=== PATIENT | female | born 1935 | race Caucasian/White ===

== ENCOUNTER 2019-04-28 20:12 | Inpatient (IN) | payer OTHER ==
[~2019-04-28] VITALS: Ht 149.9 cm; Wt 58.2 kg
[~2019-04-28 20:12] MED LIST: ACETAMINOPHEN325 M1; ALEVE220 MG PO; APAP500; CALCIUM 500 +1 EAC4 PO; CELEXA40 MG PO; FOSAMAX 70 MG T70 M1 PO; GLUCOSAMINE HC500 MG PO; HYDROCODON-ACE1 EAC7 PO; IBUPROFEN; LISINOPRIL20 MG PO; LOVASTAT40; LOVASTAT40 PO; SYNTHROID75 MCG PO
[2019-04-28 20:13] VITALS: BP 154/135
[2019-04-28] MEDS ORDERED: ALBUTEROL2.5 MG/31 INH (20:20)
[2019-04-28 20:46] LABS: HEMOGLOBIN 9.5 gm/dL (12.0-15.0); MCH 30.1 pg (26.0-34.0); MCHC 32.8 g/dL (28.0-37.0); MCV 91.9 fL (80.0-100.0); MPV 7.8 fl. (7.2-11.1); NUCLEATED RBCS 0 /100WBC; PLATELET COUNT* 236 thou/uL (150-400); RBC 3.15 mil/uL (4.20-5.00); RDW-CV 15.3 % (10.5-14.5)
[2019-04-28 20:55] LABS: ANION GAP 16 mmol/L (7-16); BUN 22 mg/dL (7-18); CALCIUM 7.8 mg/dL (8.5-10.1); CHLORIDE 103 mmol/L (98-107); CO2 21 mmol/L (21-32); CREATININE 1.8 mg/dL (0.6-1.3); GLUCOSE 116 mg/dL (70-99); SODIUM 140 mmol/L (136-145)
[2019-04-28 20:56] LABS: POTASSIUM 2.9 mmol/L (3.5-5.1)
[2019-04-28 21:05] LABS: ALBUMIN 2.5 g/dL (3.4-5.0); ALKALINE PHOSPHATASE 100 U/L (46-116); LIPASE 246 U/L (73-393); MAGNESIUM 1.5 mg/dL (1.8-2.4); NT-PRO BRAIN NAT PEPTIDE 2013 pg/mL (<300); SGOT 31 U/L (15-37); SGPT 29 U/L (30-65); TOTAL BILIRUBIN 0.4 mg/dL (<0.1-1.0); TOTAL PROTEIN 6.3 g/dL (6.4-8.2); TROPONIN-I LEVEL <0.06 ng/mL (<0.06)
[2019-04-28 21:12] LABS: PROTIME 10.4 Seconds (9.20-11.50)
[2019-04-28 21:30] LABS: ABSOLUTE EOSINOPHILS 0.1 thou/uL (0.0-0.7); ABSOLUTE LYMPHOCYTES 0.8 thou/uL (0.8-5.3); ABSOLUTE MONOCYTES 0.3 thou/uL (0.0-1.2); ABSOLUTE NEUTROPHILS 11.8 thou/uL (1.6-8.1); ANISOCYTOSIS Occasional; PLATELET ESTIMATE ADEQUATE; TOXIC GRANULATION 1+
[2019-04-28 22:29] LABS: BE -6.6 mmol/L (-2 to +3); PCO2 29.4 mmHg (35.0-45.0); pH 7.387 (7.340-7.450)
[2019-04-28 23:57] VITALS: BP 133/69
[2019-04-29] VITALS (16 sets, daily range): BP systolic 112–149; BP diastolic 52–102
--- NOTE | 2019-04-29 04:39 | NUR ---
RECIEVED PT FROM ER AT 0015H. PT WAS ALERT AND ORIENTED. HOOKED TO BIPAP MACHINE AND TOLERATING WELL.NO DISTERESS NOTED.VITALLY STABLE.CONTINUE MONITORING AND TOWARDS GOAL.
--- NOTE | 2019-04-29 06:19 | NUR ---
PT COULDN'T URINATE VIA BED PACHECO.BLADDER SCAN DONE WITH 720ML.LOUIS INSERTED ASEPTICALLY WITH PERMISSION OF PT.
[2019-04-29 06:30] LABS: URINE BILIRUBIN NEGATIVE (Negative); URINE BLOOD 1+ (Negative); URINE CLARITY CLEAR; URINE COLOR YELLOW; URINE GLUCOSE-RANDOM NEGATIVE (Negative); URINE KETONES TRACE (Negative); URINE LEUKOCYTES-REFLEX NEGATIVE (Negative); URINE NITRITE-REFLEX NEGATIVE (Negative); URINE PROTEIN 2+ (Negative); URINE UROBILINOGEN 0.2 E.U./dl (0.2-1.0)
[2019-04-29 06:44] LABS: SQUAMOUS 0-3 Few /LPF (0-3)
[2019-04-29 06:45] LABS: BACTERIA-REFLEX None Seen /HPF (None Seen); URINE RBC 0-2 Rare /HPF (0-2); URINE WBC-REFLEX None Seen /HPF (0-5)
[2019-04-29 06:46] LABS: HYALINE CASTS 0-3 Few /LPF (None Seen); MUCUS 0-3 Light strn/LPF (None Seen)
[2019-04-29 06:47] LABS: AMORPHOUS URATES Moderate /LPF (None Seen)
[2019-04-29 07:55] LABS: HEMATOCRIT 26.9 % (37.0-47.0); HEMOGLOBIN 8.8 gm/dL (12.0-15.0); MCH 30.4 pg (26.0-34.0); MCHC 32.8 g/dL (28.0-37.0); MCV 92.6 fL (80.0-100.0); RBC 2.9 mil/uL (4.20-5.00); RDW-CV 14.9 % (10.5-14.5); WBC 11.4 thou/uL (4.0-11.0)
[2019-04-29 08:01] LABS: CALCIUM 7.5 mg/dL (8.5-10.1); CREATININE 1.7 mg/dL (0.6-1.3); MAGNESIUM 2.4 mg/dL (1.8-2.4); PHOSPHORUS* 2.7 mg/dL (2.5-4.9)
[2019-04-29 08:02] LABS: POTASSIUM 4.2 mmol/L (3.5-5.1)
--- NOTE | 2019-04-29 08:46 | NUR ---
2982 ASSUMED CARE OF PATIENT. PLEASE SEE DOCUMENTED ASSESSMENT. PT IS ON BIPAP. DR STARK AND DR OSBORNE TO SEE PATIENT. WILL TRY OFF OF BIPAP
--- NOTE | 2019-04-29 08:47 | NUR ---
0840 RETYRNED TO BIPAP FRIM 5LPM NASAL CANJNULA DUE TO OXYGEN SATS DOWN TO 79%.
--- NOTE | 2019-04-29 10:47 | EKG ---
[place] [address] ELECTROCARDIOGRAM REPORT Name: DAVID PARKER Room: [address] ADM IN M.R.#: [id number] Admission: 04/28/19 Attend Phys: Jw Chavis MD Discharge: Date of : 37 Report #: [id number] THIS REPORT FOR: //name// [facility] ED Test Date: 2019-04-28 Test Time: 20:26:52 Pat Name: DAVID DUPREERP Department: Room: [facility] Gender: F Composition Floor Layer: ROBLES : 1935 Requested By: Ammy Rodriguez Order Number: [id number] MD: Fermin Amato Measurements Intervals [place] Rate: 97 P: 41 SC: 123 QRS: 66 QRSD: 86 T: -5 QT: 393 QTc: 500 Interpretive Statements Sinus tachycardia Ventricular bigeminy Nonspecific repol abnormality, diffuse leads Borderline prolonged QT interval Compared to ECG 12/01/2009 17:39:34 Ventricular premature complex(es) now present Sinus rhythm no longer present Electronically Signed On 04-29-2019 10:47:41 CDT by Fermin Amato [email or web address] <ELECTRONICALLY SIGNED> By: Fermin Amato MD, [facility] 04/29/19 1047 25 25 Fermin Amato MD, [facility] /EPI
--- NOTE | 2019-04-29 13:14 | NUR ---
PATIENT UNABLE TO TOLERATE BEING OFF OF BIPAP FOR MEALS. ABLE TO DO ORAL CARE AND PATIENT CAN TALK WITH BIPAP ON BUT DESATS QUICKLY TO 85-87% ON CANNULA
--- NOTE | 2019-04-29 13:39 | NUR ---
5673 patient stated to this nurse and to her grandson rosalia that she does not want to be intubated or put on ventilator.
--- NOTE | 2019-04-29 16:09 | NUR ---
1530 ATTEMPTED HIGH FLOW CANNULA BUT PT UNABLE TO TOLERATE.PT BECAME VERY SOA WWITH SAT DROPPING INTO LOW 80'S AND REQUESTING BIPAP. ONCOLOGY HERE ALSO AND UPDATED PATIENT ON HER PATHOLOGY REPORT FROM [place]. MAHIN SKY IS WITH PATIENT. DR STARK NOTIFIED OF PATIENT STATUS AND ORDERS RECEIVED
--- NOTE | 2019-04-29 17:12 | NUR ---
PATIENT NOT PROGRESSING TOWARDS GOALS. UNABLE TO TOLERATE BEING OFF OF BIPAP TODAY. LUNGS TIGHT AND WHEEZY. FIO2 CURRENTLY AT 70%. HAS NOT BEEN OFF OF BIPAP LONG ENOUGH TO EAT. PATIENT BECOMES ANXIOUS WHEN OFF OF BIPAP. DOING BETTER WITH PRN ATIVAN. ALSO GIVEN DIURETIC. SEEN BY CONSULTS AND AWAITING RECORDS FROM RECENT STAY AT [facility]. PT INSISTS THAT SHE WILL NOT BE INTUBATED AND THAT ORDER IS IN PLACE. FAMILY HAS VISITED.
[2019-04-30] VITALS (23 sets, daily range): BP systolic 120–171; BP diastolic 26–102
[2019-04-30 03:53] LABS: HEMATOCRIT 24.3 % (37.0-47.0); HEMOGLOBIN 7.8 gm/dL (12.0-15.0); MCHC 32.3 g/dL (28.0-37.0); MPV 7.9 fl. (7.2-11.1); RBC 2.61 mil/uL (4.20-5.00); RDW-CV 15.4 % (10.5-14.5); WBC 14.3 thou/uL (4.0-11.0)
[2019-04-30 04:21] LABS: CALCIUM 7.5 mg/dL (8.5-10.1); CREATININE 2.2 mg/dL (0.6-1.3); MAGNESIUM 2.2 mg/dL (1.8-2.4); POTASSIUM 4.4 mmol/L (3.5-5.1)
--- NOTE | 2019-04-30 05:39 | NUR ---
ASSUMED CARE AT 1910H, ON BIPAP AT 70% AND CAN NOT TOLERATE WITHOUT IT.MASK CHANGED TO SMALLER ONE AND PT WAS MORE COMFORTABLE.PT SLEPT WELL TONIGHT.NOTED PT STILL HAVE A HEMATURIA AND FLUSHING DONE ONCE IN AWHILE.CONTINUE MONITORING AND TOWARDS GOAL.
--- NOTE | 2019-04-30 07:48 | CON ---
[address] [address] CONSULTATION Name: DAVID PARKER Room: [address] ADM IN M.R.#: [id number] Admission: 04/28/19 Attend Phys: Jw Chavis MD Discharge: Date of : 36 Report #: [id number] THIS REPORT FOR: //name// CC: Amber Singh MD DATE OF SERVICE: 04/29/2019 PULMOANRY CONSULTATION ATTENDING PHYSICIAN: Dr. Jw Chavis. LOCATION: At [facility], she is located in the ICU bed 5. INDICATION FOR CONSULTATION: Acute hypoxic respiratory failure, recurrent pleural effusion, and dyspnea. CLINICAL SUMMARY: The patient is an 83-year-old female, prior smoker with multiple medical problems. She was admitted through the Emergency Room for the past 2-3 days with increasing shortness of breath. She is on oxygen 4-5 liters at home. She was desatting at home and having more shortness of breath and then when she was seen in the Emergency Room, she was tried on BiPAP, seemed to have improved a little bit and was better this morning. She was started on IV steroids and breathing treatments. She does have a history of severe COPD and I see her intermittently in the office. Recently 2 weeks ago, she was admitted to the [facility]. I am awaiting those records, but in brief, she had a malignant pleural effusion on the left that was exudative, not sure whether it was from breast or non-Hodgkin's lymphoma, with prior smoking history could also be lung cancer and we are awaiting those records at this time. I think our group did see her. I am not sure if I saw her at that time or not. PAST MEDICAL HISTORY: She has had a history of non-Hodgkin's lymphoma in remission. She had a previous left upper lobe infiltrate and scar tissue from prior breast cancer with malignancy and also non-Hodgkin's lymphoma noted, also has had bladder cancer. I am not sure what stage that is in, severe COPD, and pulmonary fibrosis with interstitial lung disease. She has been oxygen dependent at home at 3-4 liters. She has not been steroid dependent recently. As my recall, she has quite severe obstructive airways disease with an FEV1 of about 0.7 to 0.8 liters with an FVC of 2.2 liters. She has not been on CPAP or BiPAP at home. Other past medical history, she has had hypertension, hyperlipidemia, COPD oxygen dependent, and [place] [address] CONSULTATION Name: DAVID PARKER Room: [address] IN M.R.#: [id number] Admission: 04/28/19 Attend Phys: Jw Chavis MD Discharge: Date of : 36 Report #: [id number] PAST SURGICAL HISTORY: Includes, in 1970s a left-sided breast carcinoma with mastectomy without chemotherapy. She has had non-Hodgkin's lymphoma with chemo and radiation therapy. She has had bilateral oophorectomy, etiology unknown. In 2012, she had a bladder carcinoma appeared to be localized and also has had a detached retina and a thyroidectomy. ALLERGIES: She has no known medical allergies. CURRENT MEDICATIONS: Include IV Solu-Medrol 40 mg IV q.8 hours. She is on Levaquin IV and she had previously received a dose of vancomycin and Zosyn. Also, is on Lovenox 40 mg daily and atorvastatin 40 mg daily. Synthroid dose is 0.075 mg daily, guaifenesin 1200 mg b.i.d., melatonin 10 mg at bedtime, and on DuoNeb q.4 hours. Currently, oxygen is at 5 liters, was on BiPAP briefly last night, but is now off. FAMILY HISTORY: Negative for premature cardiopulmonary disease. SOCIAL HISTORY: I believe she lives on her own at home. She is on oxygen 3-5 liters at home and breathing treatments. Prior [id number] history of smoking, states she quit 3-4 years ago. Denies any alcohol or illicit drug use. REVIEW OF SYSTEMS: A 14 review of systems reviewed and negative except for pertinent positives noted in the HPI. PHYSICAL EXAMINATION: GENERAL: An ill-appearing 83-year-old female who remembers me as I walked in the room. I have not seen her in the office in the last 3-4 months. VITAL SIGNS: Currently, her blood pressure is 148/70, heart rate is 90, respirations were 20-24, slightly labored. She is afebrile. She is 5 feet tall and weight 58 kilograms or 130 pounds, BMI is 25. HEENT: Pupils are midpoint and reactive. Mucous membranes are moist. NECK: No increase in jugular venous pressure. CHEST: She has marked scarring of her left chest wall from previous old left mastectomy. No evidence of chest wall recurrence. Right chest relatively clear. Breath sounds show bilateral rhonchi, expiratory wheeze, and bilateral crackles bilaterally. She is dull on the left and less dull on the right. CARDIOVASCULAR: Regular rate and rhythm without murmur, gallop, or rub. Heart rate is in the 90s. ABDOMEN: Soft, no masses or megaly. EXTREMITIES: No calf tenderness. No cyanosis, clubbing, or edema. NEUROLOGIC: Nonfocal and intact. She moves all fours to commands. She is alert and oriented x 3. LABORATORY DATA: Today from 04/29/2019 show hemoglobin 8.8, white count 11,400, normal differential, platelets are 219,000. Sodium is 141, potassium is 4.2, carbon dioxide is 20, BUN is 19, creatinine is 1.7. Previous creatinine was 1.8 [place] [address] CONSULTATION Name: DAVID PARKER Room: [address] IN [facility]#: [id number] Admission: 04/28/19 Attend Phys: Jw Chavis MD Discharge: Date of : 36 Report #: [id number] and glucose is 148, calcium is 7.5, phosphorus is 2.7. LFTs within normal limits. NT-proBNP slightly elevated 2012. ABGs from late last night on 5 liters showed a pO2 of 59, pH 7.39, pCO2 is 29, bicarbonate 17, sats 88%. Carboxyhemoglobin only is 0.3. Chest x-ray and CT of the chest shows elevated left hemidiaphragm that obscures the left base. She does have some small to moderate left upper effusion, which appears to track posteriorly and laterally does not appear to be loculated at least at this time. She has marked architectural disease of the lung bneder with upper lobe emphysema and lower lobe fibrosis and interstitial lung disease. There are some periaortic and mediastinal lymph nodes that are noted at 1.5-2 cm that may represent a malignant process. CT of the upper abdomen otherwise appears unremarkable. Again, I do not have PFTs with me. If my memory serves me correct, her FEV1 is 0.7-0.8 with an FVC around 2.2 liters consistent with severe obstructive defect. Again, no hypercarbia noted on ABGs. I have not seen an echo on her. IMPRESSION: 1. Dyspnea, multifactorial. 2. Acute hypoxic respiratory failure, again multifactorial. 3. Severe chronic obstructive pulmonary disease. 4. Interstitial lung disease with architectural disruption of her lung parenchyma. 5. Recurrent left pleural effusion, malignant; primary source is unknown at this time. 6. History of breast cancer. 7. History of non-Hodgkin's lymphoma. 8. History of bladder cancer. PLAN: We will see if we can stabilize her over the weekend with steroids, breathing treatments, and oral bronchodilators. Her dyspnea is multifactorial. There is no evidence for pulmonary emboli and we will continue with current therapy. She is unsure whether she wants a PleurX catheter or repeat drainage at this time. We will await old records from [place] and then see if we can drain some of this fluid either Wednesday or Wednesday and make her feel a little bit better. Also, repeat and send the cytology to find a primary source and then deal from there. We definitely have to talk to her about code and ventilator status. She would not do well on the ventilator and be very hard to extubate. I spent 39 minutes on critical care consult. <ELECTRONICALLY SIGNED> By: Saul Isaac MD 04/30/19 0748 1026 1230Saul Isaac MD /nt
--- NOTE | 2019-04-30 09:33 | NUR ---
1459 ASSUMED CARE OF PATIENT. PLEASE SEE DOCUMENTED ASSESSMENT. PT REMAINS ON BIPAP.ABLE TO ANSWER QUESTIONS AND FOLLOW DIRECTIONS. DR STARK HERE AND DR OSBORNE HERE TO SEE PATIENT
--- NOTE | 2019-04-30 13:08 | CON ---
[address] [address] CONSULTATION Name: DAVID PARKER Room: [address] IN M.R.#: [id number] Admission: 04/28/19 Attend Phys: Jw Chavis MD Discharge: Date of : 36 Report #: [id number] THIS REPORT FOR: //name// CC: Amber Cota DATE OF SERVICE: 04/29/2019 PRIMARY CARE PHYSICIAN: Dr. Amber Power. REASON FOR CONSULTATION: History of non-small cell lung cancer. HISTORY OF PRESENT ILLNESS: The patient is a very pleasant 83-year-old female who has had history of left upper lobe locally advanced non-small cell lung cancer diagnosed previously. The patient was treated at that time with concomitant chemotherapy with radiation using every 3-week carboplatin. The patient tolerated it very well. He does have a history of renal insufficiency. The patient was admitted to [facility] earlier in 04/2019, at which time she was found to have some lung changes on the left side along with evidence of pleural effusion. Her pleural effusion was drained and cytology came back positive for malignant cells. She also had bronchoscopy and biopsy performed by Pulmonology, which also showed evidence of non-small cell lung cancer, indicating disease progression. The patient was subsequently discharged from the hospital and was supposed to follow up in the clinic to discuss treatment options. The patient is admitted at [facility] currently with respiratory distress. She had imaging studies performed at [facility] including V/Q scan, which was low probability. Her chest CT scan done without contrast yesterday showed [id number] left pleural effusion causing atelectasis of most of the left lung. There were nodular opacities within the left apex, which were somewhat linear, measuring up to 2.1 cm in size. Per patient's discussion with the physicians here at [facility], patient would not like to be intubated if possible. She is currently being managed with BiPAP and is currently in the ICU at this time for closer monitoring. Her labs showed WBC count of 11.4 with hemoglobin and hematocrit of 8.8 and 26.9 respectively, platelet count of 219. Sodium, potassium and chloride were within normal limits and BUN and creatinine were stable at 19 and 1.7 respectively. Urinalysis did not show any clear signs of infection. The patient was started on prophylactic Lovenox for DVT prophylaxis along with Levaquin for treatment of possible community-acquired pneumonia. She is still having difficulty breathing off BiPAP at this time. She does not complain of any other significant symptoms except for shortness [place] [address] CONSULTATION Name: DAVID PARKER Room: [address] IN M.R.#: [id number] Admission: 04/28/19 Attend Phys: Jw Chavis MD Discharge: Date of : 36 Report #: [id number] PAST MEDICAL HISTORY: 1. Breast cancer diagnosed in 1972 on the left side. 2. Bladder cancer diagnosed in 2012 and resected. 3. COPD. 4. New left upper lobe lung cancer, status post chemoradiation in 2018. 5. Right-sided lung cancer, status post radiation in 02/2018. 6. GERD. 7. Osteoporosis. 8. Hypothyroidism. 9. Hypertension. 10. Hyperlipidemia. 11. Anxiety/depression. 12. Shingles. PAST SURGICAL HISTORY: 1. Left mastectomy and lymph node dissection. 2. Bladder cancer resection. 3. Oophorectomy. 4. PICC line placement. 5. Lung biopsy. 6. Thoracentesis. PERSONAL HISTORY: A 11-sxfe-[id number] history of smoking and quit in 2001 with no significant history of alcohol use. FAMILY HISTORY: Mother with history of stomach cancer. No other family history of cancers or other hematologic disorders. ALLERGIES: No known drug allergies. CURRENT MEDICATIONS: 1. Singulair 10 mg p.o. at bedtime. 2. Lovenox 40 mg subcutaneously daily. 3. Lipitor 40 mg p.o. daily. 4. Solu-Medrol 40 mg IV q. 8 hours. 5. Albuterol 2 mg p.o. daily. 6. Lisinopril 20 mg p.o. daily. 7. Levothyroxine 0.075 mg p.o. daily. 8. Levaquin 750 mg p.o. daily. 9. Guaifenesin 1200 mg p.o. b.i.d. 10. Calcium plus vitamin D 600 mg p.o. daily. 11. Promethazine 12.5 mg p.o. q. 4 hours as needed. 12. Protonix 40 mg p.o. daily. 13. Zofran 4 mg IV push q. 4 hours as needed. 14. Melatonin 10 mg p.o. at bedtime as needed. 15. Diphenhydramine 25 mg p.o. q. 6 hours as needed. [address] [place] [address] CONSULTATION Name: DAVID PARKER Room: [address] IN [facility].#: [id number] Admission: 04/28/19 Attend Phys: Jw Chavis MD Discharge: Date of : 36 Report #: [id number] 16. Celexa 40 mg p.o. daily. 17. Bisacodyl 10 mg p.o. daily. 18. DuoNeb inhalation as needed. 19. Mylanta 30 mL p.o. q. 4 hours as needed. 20. Tylenol 650 mg p.o. q. 6 hours as needed. 21. Electrolyte replacements as directed. REVIEW OF SYSTEMS: A 13-point review of systems were obtained, which were limited due to patient's respiratory distress. PHYSICAL EXAMINATION: VITAL SIGNS: Temperature today was 36.7 degrees centigrade, pulse was 97 beats per minute, respiratory rate was 23 breaths per minute, blood pressure 148/68 mmHg with pulse ox 95% on supplemental oxygen. GENERAL: Awake and alert, having some respiratory distress at this time due to being off BiPAP. HEENT: EOMI/PERRL. LYMPHATICS: No lymphadenopathy in the neck or supraclavicular areas. CHEST: Good air entry on the right with some wheezes. Decreased air entry on the left side. CARDIOVASCULAR: Tachycardic, but regular rhythm. ABDOMEN: Soft. Bowel sounds positive. MUSCULOSKELETAL: Moving all extremities symmetrically. NEUROLOGIC: No evidence of any focal neurological deficit. INTEGUMENTARY: No evidence of rash or other skin changes. ASSESSMENT AND PLAN: The patient is a very pleasant 83-year-old female who has had a diagnosis of left upper lobe locally advanced non-small cell lung cancer, treated with concomitant chemoradiation in 2018. The patient did have evidence of a solitary right-sided lung malignancy as well, which was treated primarily with radiation. She has been followed in the outpatient setting. She recently had admission to [facility] in early 04/2019, at which time, biopsy of her left upper lobe lung mass along with cytology from new pleural effusion did reveal malignant non-small cell lung cancer cells indicating disease progression. She was due to follow up in the clinic to discuss treatment options. The patient does have recurrent pleural effusion at this time and I would recommend thoracentesis to decrease her respiratory distress. She will be a good candidate for PleurX catheter placement, which should be considered. In the meanwhile, I will work with the pathologists at [facility] to test PD-L1 status, EGFR, ALK and ROS1 status on her recent lung biopsy sample. The patient does not seem to be a good candidate for systemic chemotherapy. However, she may be a better candidate for immunotherapy [place] [address] CONSULTATION Name: KEITHDAVID Silvia Room: [address] IN ..#: [id number] Admission: 04/28/19 Attend Phys: Jw Chavis MD Discharge: Date of : 36 Report #: [id number] I discussed this plan with the patient's grandson who was present during the visit today. We will follow the patient while she is in-house. Thank you for allowing us to participate in the care of this pleasant patient. <ELECTRONICALLY SIGNED> By: Bernardino Singh MD 04/30/19 1308 1539 2006Bernardino Singh MD /nt
--- NOTE | 2019-04-30 14:05 | NUR ---
1300 DR MARTINEZ HERE TO SEE PATIENT. PATIENT REMAINS UNABLE TO BE OFF OF BIPAP EXCEPT FOR SIPS OF LIQUIDS AND ORAL CARE.
--- NOTE | 2019-04-30 17:39 | NUR ---
MINIMAL PROGRESSION TOWARDS GOALS.FIO2 TITRATED TO 65% BUT PATIENT STILL UNABLE TO BE OFF BIPAP EXCEPT FOR SIPS/MEDS. WAS ABLE TO HAVE A FEW BITES OF SOLID FOOD THIS EVENING. URINE NOT BLOODY.VSS. PLAN IS FOR THORACENTESIS TOMORROW. PATIENT HAS CONSENTED AND IS AWARE OF WHAT THE PROCEDURE ENTAILS. FAMILY HAS VISITED.
[2019-05-01] VITALS (25 sets, daily range): BP systolic 99–166; BP diastolic 44–88
[2019-05-01 04:04] LABS: HEMATOCRIT 23.8 % (37.0-47.0); HEMOGLOBIN 7.6 gm/dL (12.0-15.0); MCH 29.8 pg (26.0-34.0); MCHC 32.1 g/dL (28.0-37.0); MCV 92.9 fL (80.0-100.0); MPV 7.7 fl. (7.2-11.1); RBC 2.56 mil/uL (4.20-5.00); RDW-CV 15.7 % (10.5-14.5); WBC 13.7 thou/uL (4.0-11.0)
[2019-05-01 04:14] LABS: CALCIUM 8.1 mg/dL (8.5-10.1); MAGNESIUM 2.5 mg/dL (1.8-2.4); POTASSIUM 4.7 mmol/L (3.5-5.1)
[2019-05-01 04:17] LABS: APTT 22.9 Seconds (25.0-31.3); INR 1.1; PROTIME 11.1 Seconds (9.20-11.50)
--- NOTE | 2019-05-01 05:08 | NUR ---
VITALS STABLE, AFEBRILE. PT DOES NOT TOLERATE COMING OFF BIPAP EVEN FOR A FEW SECONDS TO TAKE HER MEDS. HEATED HIGHFLOW RECOMMENDED BY RT AND ORDER OBTAINED, PT REFUSES TRYING IT THROUGH THE NIGHT BUT REPORTS WE CAN TRY DURING THE DAYTIME. OTHERWISE UNEVENTFUL NIGHT, SLEPT INTERMITTENTLY. Q2 TURNS FOR SKIN INTEGRITY, ABLE TO USE CALL LIGHT. PRN PAIN/ANXIETY MEDS GIVEN. UOP 150CC, BLOODY.
--- NOTE | 2019-05-01 14:11 | NUR ---
PT OFF FLOOR FOR PLACEMENT OF THORACIC/PLEURX CATHETER AND THORACENTESIS. HOME BASELINE FOR OXYGEN IS 2L/NC. CURRENTLY USING BIPAP
[2019-05-02] VITALS (47 sets, daily range): BP systolic 60–154; BP diastolic 18–65
[2019-05-02 02:18] LABS: HEMOGLOBIN 7.6 gm/dL (12.0-15.0)
--- NOTE | 2019-05-02 05:49 | NUR ---
LOWEST MAP 55, BUT REBOUNDS BACK. NO CHANGE TO PLEURAL CATH SITE, 130CC BLOODY DRAINAGE. PT LESS ALERT THIS EVENING, DENIES PAIN BUT MOANS AND GROANS. ABOUT 10-20CC OF UOP, DARK RED. NO BM THIS EVENING. ON 100% FIO2 ON HER BIPAP. NSR/ SINUS TACH ON THE MONITOR. Q2 TURNS FOR SKIN INTEGRITY. DID NOT USE HER CALL LIGHT OR ASK FOR WATER THIS EVENING, UNLIKE LAST NIGHT.
[2019-05-02 07:50] LABS: BE -9.2 mmol/L (-2 to +3); PCO2 42.4 mmHg (35.0-45.0); PO2 81.4 mmHg (75.0-100.0)
[2019-05-02 07:53] LABS: pH 7.235 (7.340-7.450)
--- NOTE | 2019-05-02 09:09 | NUR ---
6065 ASSUMED CARE OF PATIENT. ROSALIO SEE DOCUMENTED ASSESSMENT. OPENS EYES TO NAME BUT NOT FOLLOWING COMMANDS. DR STARK TO SEE PATIENT. LOUIS IRRIGATED WITH 60 ML STERILE WATER. IRRIGANT RETURNED BUT NOT MUCH MORE URINE. URINE IS BLOOD TINGED WITH SMALL CLOT.
--- NOTE | 2019-05-02 09:11 | NUR ---
[address] PER BED WITH BIPAP AND RT.
--- NOTE | 2019-05-02 09:12 | NUR ---
PICC PLACEMENT IN PROGRESS. FLUIDS INFUSING WIDE OPEN ORDERED
--- NOTE | 2019-05-02 10:05 | NUR ---
FLUID BOLUS COMPLETED. RIGHT PICC IN PLACE
--- NOTE | 2019-05-02 10:25 | NUR ---
PT CURRENTLY SLEEPING, ON BIPAP. NO FAMILY IN THE ROOM. CASE MGT WILL CONTINUE TO FOLLOW.
--- NOTE | 2019-05-02 13:39 | NUR ---
PT AGONAL WITH RESPIRATIONS AND UNRESPONSIVE TO PAIN AT NOON. AT 1325 BECAME BRADYCARDIC WITHOUT PULSE EVEN ON LEVOPHED DRIP
--- NOTE | 2019-05-02 16:55 | NUR ---
1620 APNEIC ON BIPAP. BRADYCARDIA WITHOUT PULSE. PRONOUNCED BY DR BUSTAMANTE. FAMILY PRESENT AT BEDSIDE.
--- NOTE | 2019-05-02 18:05 | NUR ---
LINES REMOVED. FAMILY HAS LEFT AND WILL CALL UNIT WITH HOME
--- NOTE | 2019-05-02 22:00 | NUR ---
Pt's body picked up by home and accompanied by security guard supervisor at [id number]. Dc'd per cart.
== END 2019-05-02 16:20 | DRG 673 ==
LOC: M.ERS 20:12 → M.ICU 23:10 → M.TBA-ER 23:10 → M.ICU 23:56
PROVIDERS: Emergency Medicine; Internal Medicine; ADMIT Internal Medicine
PROC: 5A09457 Assistance with Respiratory Ventilation, 24-96 Consecutive Hours, Continuous Positive Airway Pressure (ICD-10-PCS; principal; 2019-04-29)
PROC: 0JH63XZ Insertion of Tunneled Vascular Access Device into Chest Subcutaneous Tissue and Fascia, Percutaneous Approach (ICD-10-PCS; 2019-05-01)
PROC: B54NZZZ Ultrasonography of Left Upper Extremity Veins (ICD-10-PCS; 2019-05-01)
PROC: 0W9B3ZZ Drainage of Left Pleural Cavity, Percutaneous Approach (ICD-10-PCS; 2019-05-01)
PROC: BW1J1ZZ Fluoroscopy of Upper Extremity using Low Osmolar Contrast (ICD-10-PCS; 2019-05-01)
PROC: 05HY33Z Insertion of Infusion Device into Upper Vein, Percutaneous Approach (ICD-10-PCS; 2019-05-02)
DX: N17.0 Acute kidney failure with tubular necrosis (principal); J96.21 Acute and chronic respiratory failure with hypoxia; R65.11 Systemic inflammatory response syndrome (SIRS) of non-infectious origin with acute organ dysfunction; J96.22 Acute and chronic respiratory failure with hypercapnia; C34.90 Malignant neoplasm of unspecified part of unspecified bronchus or lung; J91.0 Malignant pleural effusion; J44.1 Chronic obstructive pulmonary disease with (acute) exacerbation; E44.0 Moderate protein-calorie malnutrition; J98.11 Atelectasis; F41.9 Anxiety disorder, unspecified; I10 Essential (primary) hypertension; E78.5 Hyperlipidemia, unspecified; F32.9 Major depressive disorder, single episode, unspecified; J84.89 Other specified interstitial pulmonary diseases; E87.6 Hypokalemia; R33.9 Retention of urine, unspecified; J84.10 Pulmonary fibrosis, unspecified; E89.0 Postprocedural hypothyroidism; M81.0 Age-related osteoporosis without current pathological fracture; R31.0 Gross hematuria; I95.9 Hypotension, unspecified; Z85.72 Personal history of non-Hodgkin lymphomas; Z85.3 Personal history of malignant neoplasm of breast; Z85.51 Personal history of malignant neoplasm of bladder; Z99.81 Dependence on supplemental oxygen; Z79.899 Other long term (current) drug therapy; Z90.10 Acquired absence of unspecified breast and nipple; Z92.21 Personal history of antineoplastic chemotherapy; Z87.891 Personal history of nicotine dependence; Z68.25 Body mass index [BMI] 25.0-25.9, adult; Z92.3 Personal history of irradiation; Z90.722 Acquired absence of ovaries, bilateral; Z80.0 Family history of malignant neoplasm of digestive organs